=== PATIENT | female | born 1950 | race Caucasian/White ===

== ENCOUNTER → 2017-06-05 | Outpatient (CLI) | payer MEDICARE ==
--- NOTE | 2017-06-05 12:35 | KCIC ---
MRI lumbar spine without contrast June 05, 2017 INDICATION: Right hip pain for one year. Right leg pain for 6 months COMPARISON: None available TECHNIQUE: Multiplanar, multisequence MR imaging of the lumbar spine is performed without intravenous contrast. FINDINGS: Alignment of the lumbar spine is normal. There is disc height loss with fatty marrow replacement at the endplates of L5-S1 compatible with Modic type II endplate degenerative changes. There is a Schmorl's node involving the superior endplate of L1 with minimal height loss and no associated edema compatible with chronic deformity. There is an annular fissure at L5-S1. Conus terminates at T12-L1. Distal cord signal is normal in all sequences. Visualized portions of the retroperitoneum are within normal limits. Abdominal aorta is normal in course and caliber. There is an osseous hemangioma involving the left posterior iliac bone and right sacrum. L3-L4: Minimal disc bulge. Mild facet arthropathy. No neuroforaminal or spinal canal stenosis. L4-L5: Disc is normal in configuration. There is moderate facet arthropathy. No neuroforaminal or spinal canal stenosis. L5-S1: There is a central disc protrusion. Moderate to severe facet arthropathy. No neuroforaminal or spinal canal stenosis. IMPRESSION: 1. There is central disc protrusion at L5-S1 with moderate to severe facet arthropathy without significant neuroforaminal or spinal canal stenosis. 2. Chronic superior endplate compression deformity involving L1 with minimal loss of height. Electronically signed by: Dena Randle MD (06/05/2017 12:29 PM) [id number]
== END | disposition home or self-care (01) ==
LOC: KCIC MRI 09:59
PROVIDERS: ATTEND Anesthesiology Pain Medicine
DX: M51.17 Intervertebral disc disorders with radiculopathy, lumbosacral region (principal); Z96.642 Presence of left artificial hip joint
CPT/HCPCS: 72148